=== PATIENT | female | born 1995 | race Caucasian/White ===

== ENCOUNTER 2018-05-15 23:39 | Emergency (ER) | payer OTHER ==
[~2018-05-15] VITALS: Ht 154.9 cm; Wt 90.7 kg
[2018-05-15 23:44] VITALS: Ht 154.9 cm; Wt 90.7 kg
[2018-05-16 00:11] LABS: BASOPHIL % 0.6 % (0-2); PLATELET COUNT 227 x10^3mcL (130-400)
[2018-05-16 00:33] LABS: CARBON DIOXIDE 20.2 mmol/L (21-32); CREATININE SERUM 2.2 mg/dL (0.6-1.0); POTASSIUM SERUM 5.1 mmol/L (3.5-5.1)
[2018-05-16 00:35] LABS: RED CELL DISTRIBUTION WIDTH 16.7 % (11.5-14.5)
[2018-05-16 00:39] LABS: BILIRUBIN TOTAL 5.7 mg/dL (0.20-1.00)
[2018-05-16 00:40] LABS: ALBUMIN 2.2 g/dL (3.4-5.0)
[2018-05-16 02:38] VITALS: BP 109/59
== END 2018-05-16 02:12 | disposition short-term general hospital (02) ==
LOC: ED 23:39
PROVIDERS: Emergency Medicine
DX: O14.13 Severe pre-eclampsia, third trimester (principal); Z3A.36 36 weeks gestation of pregnancy
CPT/HCPCS: J3475; J3490; Q0162

== ENCOUNTER 2018-05-27 08:04 | Emergency (ER) | payer OTHER ==
[~2018-05-27] VITALS: Ht 154.9 cm; Wt 90.7 kg
[2018-05-27 08:11] VITALS: Ht 154.9 cm; Wt 90.7 kg
[2018-05-27 10:09] LABS: CALCIUM 7.7 mg/dL (8.5-10.1); CARBON DIOXIDE 23.8 mmol/L (21-32); CHLORIDE SERUM 103 mmol/L (98-107); CREATININE SERUM 0.7 mg/dL (0.6-1.0); GFR1 > 60 mL/min; GLUCOSE SERUM 63 mg/dL (74-106); POTASSIUM SERUM 4.6 mmol/L (3.5-5.1); SODIUM SERUM 136 mmol/L (136-145)
[2018-05-27 10:19] LABS: UA SPECIFIC GRAVITY 1.025 (1.005-1.035); microscopic required? YES; urine erythrocyte NEGATIVE (NEGATIVE)
[2018-05-27 10:20] LABS: ALKALINE PHOSPHATASE 280 U/L (46-116); ALT/SGPT 17 U/L (14-59); AST/SGOT 20 U/L (15-37); LIPASE 165 IU/L (73-393)
[2018-05-27 10:31] LABS: ALBUMIN 1.1 g/dL (3.4-5.0); TOTAL PROTEIN, SERUM 5.5 g/dL (6.4-8.2)
[2018-05-27 10:57] LABS: PLATELET COUNT 146 x10^3mcL (130-400)
[2018-05-27 11:05] LABS: RED CELL DISTRIBUTION WIDTH 18.7 % (11.5-14.5)
[2018-05-27 11:55] LABS: ATYPICAL LYMPH 5 %; BAND NEUTROPHIL 3 % (0-10); BASOPHIL 0 % (0-2); PLATELET MORPHOLOGY PLATELETS DECREASED; SEGMENTED NEUTROPHILS 87 % (37-75); rbc morphology (normal/abnorm) ABNORMAL (NORMAL)
[2018-05-27 11:56] VITALS: BP 133/81
== END 2018-05-27 11:56 | disposition home or self-care (01) ==
LOC: ED 08:04
PROVIDERS: Emergency Medicine
DX: O86.20 Urinary tract infection following delivery, unspecified (principal); O90.89 Other complications of the puerperium, not elsewhere classified; R11.2 Nausea with vomiting, unspecified; F17.210 Nicotine dependence, cigarettes, uncomplicated; Z98.890 Other specified postprocedural states
CPT/HCPCS: J2270; J7030

== ENCOUNTER 2018-06-06 04:47 | Inpatient (IN) | payer OTHER ==
[~2018-06-06] VITALS: Ht 154.9 cm; Wt 90.3 kg
[2018-06-06 04:55] VITALS: Ht 154.9 cm; Wt 90.3 kg
[2018-06-06 05:28] LABS: BASOPHIL % 0.2 % (0-2)
[2018-06-06 05:31] LABS: PLATELET COUNT 1195 x10^3mcL (130-400); RED CELL DISTRIBUTION WIDTH 20.4 % (11.5-14.5)
[2018-06-06 05:33] LABS: CALCIUM 7.4 mg/dL (8.5-10.1); CARBON DIOXIDE 24.2 mmol/L (21-32); CHLORIDE SERUM 105 mmol/L (98-107); CREATININE SERUM 0.7 mg/dL (0.6-1.0); GFR1 > 60 mL/min; GLUCOSE SERUM 84 mg/dL (74-106); SODIUM SERUM 139 mmol/L (136-145)
[2018-06-06 05:38] LABS: ALKALINE PHOSPHATASE 218 U/L (46-116); AMYLASE 82 U/L (25-115); AST/SGOT 27 U/L (15-37); BILIRUBIN TOTAL 0.44 mg/dL (0.20-1.00); LIPASE 367 IU/L (73-393)
[2018-06-06 05:47] LABS: ALBUMIN 1.3 g/dL (3.4-5.0); TOTAL PROTEIN, SERUM 5.7 g/dL (6.4-8.2)
[2018-06-06 05:58] LABS: ALT/SGPT 19 U/L (14-59)
[2018-06-06 06:05] LABS: acanthocyte (spur cell) 1+; rbc morphology (normal/abnorm) ABNORMAL (NORMAL)
[2018-06-06 06:40] LABS: MAGNESIUM 1.8 mg/dL (1.8-2.4)
[2018-06-06 06:43] LABS: CHOLESTEROL/HDL RATIO 6.1
[2018-06-06 10:37] LABS: BASOPHIL % 0.3 % (0-2)
[2018-06-06 10:59] LABS: RED CELL DISTRIBUTION WIDTH 20.1 % (11.5-14.5)
[2018-06-06 11:05] LABS: PLATELET COUNT 990 x10^3mcL (130-400)
[2018-06-06 11:45] LABS: microscopic required? NO
[2018-06-06 12:20] LABS: UA SPECIFIC GRAVITY 1.015 (1.005-1.035); urine erythrocyte NEGATIVE (NEGATIVE)
[2018-06-06 14:49] LABS: RED CELL DISTRIBUTION WIDTH 19.4 % (11.5-14.5)
[2018-06-06 14:52] LABS: PLATELET COUNT 1135 x10^3mcL (130-400)
[2018-06-06 15:12] VITALS: BP 135/95
[2018-06-06 15:25] LABS: MONOCYTE 6 % (0-7); SEGMENTED NEUTROPHILS 66 % (37-75)
[2018-06-06 15:26] LABS: BAND NEUTROPHIL 3 % (0-10); BASOPHIL 0 % (0-2); rbc morphology (normal/abnorm) ABNORMAL (NORMAL)
[2018-06-06 19:45] VITALS: BP 152/94
[2018-06-06 23:20] VITALS: BP 138/81
[2018-06-07 03:42] VITALS: BP 146/97
[2018-06-07 05:05] LABS: PLATELET COUNT 1102 x10^3mcL (130-400)
[2018-06-07 05:19] LABS: CALCIUM 7.7 mg/dL (8.5-10.1); CARBON DIOXIDE 20.7 mmol/L (21-32); CHLORIDE SERUM 102 mmol/L (98-107); CREATININE SERUM 0.6 mg/dL (0.6-1.0); GFR1 > 60 mL/min; GLUCOSE SERUM 91 mg/dL (74-106); MAGNESIUM 1.8 mg/dL (1.8-2.4); PHOSPHOROUS 4.6 mg/dL (2.5-4.9); POTASSIUM SERUM 4.2 mmol/L (3.5-5.1)
[2018-06-07 05:35] LABS: BAND NEUTROPHIL 6 % (0-10); MONOCYTE 4 % (0-7); SEGMENTED NEUTROPHILS 80 % (37-75)
[2018-06-07 05:37] LABS: rbc morphology (normal/abnorm) ABNORMAL (NORMAL)
[2018-06-07 05:38] LABS: PLATELET MORPHOLOGY PLATELETS INCREASED
[2018-06-07 07:21] VITALS: BP 147/97
[2018-06-07 07:30] LABS: SODIUM SERUM 135 mmol/L (136-145)
== END 2018-06-07 08:30 | disposition short-term general hospital (02) | DRG 546 ==
LOC: ED 04:47 → IC 06:02 → DU 06:02 → IC 14:55
PROVIDERS: Emergency Medicine; Surgery; ADMIT General Practice
PROC: 0D9W0ZZ Drainage of Peritoneum, Open Approach (ICD-10-PCS; 2018-06-06)
PROC: 0WJP4ZZ Inspection of Gastrointestinal Tract, Percutaneous Endoscopic Approach (ICD-10-PCS; 2018-06-06)
PROC: 30233N1 Transfusion of Nonautologous Red Blood Cells into Peripheral Vein, Percutaneous Approach (ICD-10-PCS; 2018-06-06)
PROC: 0DN80ZZ Release Small Intestine, Open Approach (ICD-10-PCS; principal; 2018-06-06 20:30)
DX: O85 Puerperal sepsis (principal); E43 Unspecified severe protein-calorie malnutrition; K65.9 Peritonitis, unspecified; E83.51 Hypocalcemia; D62 Acute posthemorrhagic anemia; O72.1 Other immediate postpartum hemorrhage; E78.1 Pure hyperglyceridemia; D47.3 Essential (hemorrhagic) thrombocythemia; O90.81 Anemia of the puerperium; O25.3 Malnutrition in the puerperium; O99.285 Endocrine, nutritional and metabolic diseases complicating the puerperium; O72.3 Postpartum coagulation defects; Z53.31 Laparoscopic surgical procedure converted to open procedure; Z68.34 Body mass index [BMI] 34.0-34.9, adult
CPT/HCPCS: 83880; J0690; J0696; J1885; J1940; J2175; J2250; J2270; J2405; J3010; J3370; J3490; J7030; J7040; J7050; P9016; Q0092

== ENCOUNTER 2019-09-20 17:00 | Emergency (ER) | payer MEDICAID ==
[~2019-09-20] VITALS: Ht 154.9 cm; Wt 68.9 kg
[2019-09-20 17:08] VITALS: Ht 154.9 cm; Wt 68.9 kg
[2019-09-20 18:09] VITALS: BP 119/71
== END 2019-09-20 18:09 | disposition home or self-care (01) ==
LOC: ED 17:00
DX: N39.0 Urinary tract infection, site not specified (principal); F17.210 Nicotine dependence, cigarettes, uncomplicated; Z11.3 Encounter for screening for infections with a predominantly sexual mode of transmission; Z88.8 Allergy status to other drugs, medicaments and biological substances
CPT/HCPCS: 87491; 87591; J0696